=== PATIENT | female | born 1980 | race African-American/Black ===

== ENCOUNTER 2017-11-28 16:23 | Emergency (ER) | payer BC, OTHER ==
[~2017-11-28] VITALS: Ht 170.2 cm; Wt 89.8 kg
[~2017-11-28 16:23] MED LIST: ACETAMINOPHEN-1 EAC1 PO; ACIDOPHILUS LA1 EACH PO; ACIDOPHILUS1 EAC3 PO; ALPRAZOLAM ER0.5 MG PO; AMITRIPTYLINE H25 M2 PO; APIDRA SOL100 UNIT/1; ARTIFICIAL TEA3.5 G2; ATIVAN1 MG PO; AUGMENTIN 875875 MG PO; AVIANE1 EACH PO; AVITA TP; AZATHIOPRINE50 MG PO; BENADRYL ALLERG25 MG PO; BENADRYL25 MG PO; BENTYL 10 MG CA10 M1 PO; BENTYL 20 MG TA20 M1 PO; CALCIUM OYSTER500 MG PO; CARAFATE 1 GM TA1 GM PO; CIPRO500 MG PO; CIPROFLOXACIN500 M1 PO; CIPROFLOXIN HC2.5 M1 OPHTHALMIC; CLEOCIN HCL300 MG PO; CLINDAMYCIN PHO40 GM VG; CLONAZEPAM 0.50.5 M1 PO; CLOTRIMAZOLE 1%15 G1 TOP; COLACE100 MG PO; DIFLUCAN OR; DIFLUCAN100 MG PO; DILAUDID 2 MG TA2 MG; DILAUDID 2 MG TA2 MG PO; DILAUDID2 M1 PO; ERYTHROMYCIN500 MG PO; FLAGYL500 M1 PO; FLONASE 0.05%50 MCG NASAL; HYDROCHLOROTH12.5 M1; HYDROCODONE-AP1 EAC6 PO; HYDROCODONE-APA1 TA1 PO; INVANZ 1GM/NS 101 GM IV; IRON 100-VITAM1 EACH; KEFLEX500 M1 PO; KEFLEX500 MG PO; LEVOTHYROXIN0.112 M1; LEVOTHYROXIN0.125 M1 PO; LEXAPRO 10 MG T10 M2 PO; LIDOCAINE 22 %/30 GM MM; MACROBID 100 M100 M1 PO; MACROBID 100 M100 MG PO; MAG-OX 400 TAB400 M1 PO; MECLIZINE HCL25 M1 PO; MEDROLDOSEPACK PO; MEDROXYPROGESTERONE IM; MELOXICAM7.5 MG PO; MEPRON750 MG/5 M PO; METHIMAZOLE10 MG; MICONAZOLE 745 GM VG; MINOCYCLINE HC100 M2 PO; MIRALAX17 GM PO; MOBIC7.5 MG PO; MOVIPREP POWDE1 EACH PO; NEXIUM20 M1; NOHOMEMEDICATIONS; NORCO 5-325 TA1 EAC1 PO; NORCO 5-325 TA1 EACH PO; NUVIGIL150 MG PO; OMEPRAZOLE20 M1 PO; ONDANSETRON HCL4 M2 PO; OPCICON ONE-ST1.5 MG PO; OXCARBAZEPINE150 MG PO; OXCARBAZEPINE300 MG PO; OXYCODONE HCL 55 MG PO; OXYCONTIN10 M1 PO; PEPCID20 MG PO; PERCOCET PO; PHENERGAN 25 MG25 M1; PHENERGAN 25 MG25 M1 PO; PHENERGAN25 MG RE; POTASSIUM20 PO; PREDNISOLONE 5 M5 M1 PO; PREDNISONE 10 M10 M1 PO; PREDNISONE 20 M20 M1 PO; PREDNISONE 20 M20 MG PO; PREDNISONE50 MG PO; PRENATAL; PROAIR HFA8.5 GM IH; PROAIR HFA8.5 GM INH; PROMETHAZINE HC25 M2 PO; PROTONIX40 M1 PO; PROTONIX40 M2; PROZAC 20 MG20 MG PO; PROZAC20 MG; PROZAC20 MG PO; PROZAC40 MG PO; REMICADE 1100 MG/VIA INJECTION; REMICADE 1100 MG/VIA IV; ROXICODONE5 MG PO; SELENIUM200 MC3 PO; SENOKOT-S1 TA1 OR; SENOKOT-S1 TA1 PO; SEROQUEL 25 MG25 M1 PO; TAPAZOLE10 MG PO; TENORMIN25 MG PO; TESSALON PERLE100 M1 PO; TIROSINT125 MCG PO; TRAMADOL 50 MG50 MG PO; TRANSDERM-SCO1 PATC1 TD; TRILEPTAL300 MG; ULTRAM 50MG TAB50 MG PO; VALIUM5 MG PO; VANCOMYCIN PO; VICODIN; VITAMIN D 5050000 I1; VITAMIN D 5050000 I1 PO; VITAMIN D-32000 UNIT; VITAMIN D32000 UNI1 PO; VITAMIN D400 UNI1 PO; WELLBUTRIN SR150 MG PO; XANAX 0.5 MG0.5 M1; XANAX 0.5 MG0.5 MG; XANAX XR0.5 MG PO; XIFAXAN550 M1 PO; ZANAFLEX4 MG PO; ZOFRAN ODT4 MG PO; ZOFRAN ODT4 MG SUBLING; ZOFRAN4 MG PO; ZOLOFT 50 MG TA50 MG; ZPAK PO; [UNRECOGNIZED DRUG - OTHER]
[2017-11-28 16:59] LABS: URINE BILIRUBIN NEGATIVE (Negative); URINE BLOOD 1+ (Negative); URINE CLARITY CLEAR; URINE COLOR YELLOW; URINE GLUCOSE-RANDOM NEGATIVE (Negative); URINE KETONES NEGATIVE (Negative); URINE LEUKOCYTES-REFLEX NEGATIVE (Negative); URINE NITRITE-REFLEX NEGATIVE (Negative); URINE PROTEIN NEGATIVE (Negative); URINE UROBILINOGEN 0.2 E.U./dl (0.2-1.0)
[2017-11-28 17:10] LABS: BACTERIA-REFLEX None Seen /HPF (None Seen); CASTS None Seen /LPF (None Seen); CRYSTALS None Seen /LPF (None Seen); SQUAMOUS 4-10 Moderate /LPF (0-3); URINE RBC 0-2 Rare /HPF (0-2); URINE WBC-REFLEX None Seen /HPF (0-5)
[2017-11-28 17:19] LABS: ABSOLUTE LYMPHOCYTES 1.7 thou/uL (0.8-5.3); ABSOLUTE MONOCYTES 0.4 thou/uL (0.0-1.2); ABSOLUTE NEUTROPHILS 7.1 thou/uL (1.6-8.1); BASOPHILS 0.3 %; EOSINOPHILS 0.3 %; HEMATOCRIT 38.8 % (37.0-47.0); LYMPHOCYTES 18.1 %; MCH 29.9 pg (26.0-34.0); MCHC 33.6 g/dL (28.0-37.0); MCV 89.1 fL (80.0-100.0); MONOCYTES 4.8 %; MPV 8.6 fl. (7.2-11.1); NUCLEATED RBCS 0 /100WBC; PLATELET COUNT* 279 thou/uL (150-400); POLYS 76.5 %; RBC 4.36 mil/uL (4.20-5.00); RDW-CV 13.6 % (10.5-14.5); WBC 9.3 thou/uL (4.0-11.0)
[2017-11-28 17:26] LABS: CALCIUM 9.5 mg/dL (8.5-10.1); CREATININE 0.7 mg/dL (0.6-1.3); POTASSIUM 3.6 mmol/L (3.5-5.1)
[2017-11-28 17:31] LABS: TOTAL BILIRUBIN 0.2 mg/dL (<0.1-1.0); TOTAL PROTEIN 7.8 g/dL (6.4-8.2)
[2017-11-28] MEDS ORDERED: VENTOLIN HFA 1818 GM INH (17:41)
[2017-11-28] MEDS ORDERED: AZITHROMYCIN 2250 MG PO (17:49)
[2017-11-28] MEDS ORDERED: EAR WAX DROPS15 ML OTIC (17:51)
[2017-11-28] MEDS ORDERED: VITAMIN D2000 UNIT PO (17:51)
[2017-11-28] MEDS ORDERED: VALIUM5 MG PO (17:53)
[2017-11-28] MEDS ORDERED: ENTRESTO 24 MG1 EACH PO (17:54)
[2017-11-28] MEDS ORDERED: LASIX 20 MG TAB20 MG PO (17:56)
[2017-11-28] MEDS ORDERED: ED-SPAZ0.125 MG SUBLING (17:57)
[2017-11-28] MEDS ORDERED: SYNTHROID88 MCG PO (17:58)
[2017-11-28] MEDS ORDERED: LIDOCAINE GEL TOP (18:12)
[2017-11-28] MEDS ORDERED: TOPROL XL25 MG PO (18:13)
[2017-11-28] MEDS ORDERED: PANCRELIPASE PO (18:14)
[2017-11-28] MEDS ORDERED: PREDNISONE 5 MG5 M1 (18:15)
[2017-11-28] MEDS ORDERED: ZANTAC 150MG T150 MG PO (18:16)
[2017-11-28] MEDS ORDERED: SPIRONOLACTONE25 M1 PO (18:17)
[2017-11-28] MEDS ORDERED: ZOLOFT50 MG PO (18:17)
[2017-11-28] MEDS ORDERED: TRAZODONE HCL50 MG PO (18:18)
[2017-11-28] MEDS ORDERED: TRANSDERM-SCOP1 EACH TOP (18:18)
[2017-11-28] MEDS ORDERED: SONATA5 M1 PO (18:20)
[2017-11-28] MEDS ORDERED: BENTYL 20 MG TA20 M1 PO (19:59)
[2017-11-28] MEDS ORDERED: NORCO 5-325 TA1 EAC1 PO (19:59)
[2017-11-28] MEDS ORDERED: PREDNISONE50 MG PO (20:00)
[2017-11-28 20:16] VITALS: BP 119/85
== END 2017-11-28 20:17 | disposition home or self-care (01) ==
LOC: M.ERS 16:23
PROVIDERS: Nurse Practitioner Family
DX: K50.90 Crohn's disease, unspecified, without complications (principal); E03.9 Hypothyroidism, unspecified; Z88.1 Allergy status to other antibiotic agents; Z88.8 Allergy status to other drugs, medicaments and biological substances

== ENCOUNTER 2018-09-18 19:44 | Emergency (ER) | payer BC ==
[~2018-09-18] VITALS: Ht 170.2 cm; Wt 106.6 kg
[~2018-09-18 19:44] MED LIST changes: +ABILIFY 2 MG2 M1 PO; +AZITHROMYCIN 2250 MG PO; +DEMADEX20 MG PO; +EAR WAX DROPS15 ML OTIC; +ED-SPAZ0.125 MG SUBLING; +ENTRESTO 24 MG1 EACH PO; +ERYTHROMYCIN E3.5 G2; +LASIX 20 MG TAB20 MG PO; +LIDOCAINE GEL TOP; +METFORMIN HCL500 MG PO; +MIRENA1 EACH; +NEURONTIN 300M300 M2 PO; +PANCRELIPASE PO; +PREDNISONE 5 MG5 M1; +SONATA5 M1 PO; +SPIRONOLACTONE25 M1 PO; +SYNTHROID88 MCG PO; +TESSALON PERLE100 MG PO; +TOPROL XL25 MG PO; +TRANSDERM-SCOP1 EACH TOP; +TRAZODONE HCL50 MG PO; +VENTOLIN HFA 1818 GM INH; +VITAMIN D2000 UNIT PO; +ZANTAC 150MG T150 MG PO; +ZOLOFT50 MG PO
[2018-09-18] MEDS ORDERED: FLEXERIL PO (21:32)
[2018-09-18] MEDS ORDERED: NORCO 5-325 TA1 EAC1 PO (21:33)
[2018-09-18 21:44] VITALS: BP 122/68
== END 2018-09-18 21:44 | disposition home or self-care (01) ==
LOC: M.ERS 19:44
DX: S09.8XXA Other specified injuries of head, initial encounter (principal); E03.9 Hypothyroidism, unspecified; I50.9 Heart failure, unspecified; Z88.1 Allergy status to other antibiotic agents; Z88.2 Allergy status to sulfonamides; Z88.5 Allergy status to narcotic agent; Z88.8 Allergy status to other drugs, medicaments and biological substances; W18.2XXA Fall in (into) shower or empty bathtub, initial encounter; Y93.89 Activity, other specified; Y92.89 Other specified places as the place of occurrence of the external cause; Y99.8 Other external cause status

== ENCOUNTER 2020-01-28 18:29 | Emergency (ER) | payer BC ==
[~2020-01-28] VITALS: Ht 170.2 cm; Wt 81.7 kg
[~2020-01-28 18:29] MED LIST changes: +FLEXERIL PO
[2020-01-28] MEDS ORDERED: NASCOBAL1 EACH NASAL (18:50)
[2020-01-28] MEDS ORDERED: CARVEDILOL12.5 MG PO (18:50)
[2020-01-28] MEDS ORDERED: NITROSTAT0.3 MG SUBLING (18:51)
[2020-01-28 19:07] LABS: URINE BILIRUBIN NEGATIVE (Negative); URINE BLOOD NEGATIVE (Negative); URINE CLARITY CLEAR; URINE COLOR YELLOW; URINE GLUCOSE-RANDOM NEGATIVE (Negative); URINE KETONES NEGATIVE (Negative); URINE LEUKOCYTES-REFLEX NEGATIVE (Negative); URINE NITRITE-REFLEX NEGATIVE (Negative); URINE PROTEIN NEGATIVE (Negative); URINE SPECIFIC GRAVITY 1.025 (1.005-1.030); URINE UROBILINOGEN 0.2 E.U./dl (0.2-1.0)
[2020-01-28 19:39] LABS: ABSOLUTE EOSINOPHILS 0.2 thou/uL (0.0-0.7); ABSOLUTE LYMPHOCYTES 2.4 thou/uL (0.8-5.3); ABSOLUTE MONOCYTES 0.4 thou/uL (0.0-1.2); ABSOLUTE NEUTROPHILS 4.1 thou/uL (1.6-8.1); BASOPHILS 0.1 %; EOSINOPHILS 3.1 %; HEMATOCRIT 36.9 % (37.0-47.0); LYMPHOCYTES 33.2 %; MCH 31.5 pg (26.0-34.0); MCHC 35.1 g/dL (28.0-37.0); MCV 89.5 fL (80.0-100.0); MONOCYTES 5.7 %; MPV 9.9 fl. (7.2-11.1); NUCLEATED RBCS 0 /100WBC; PLATELET COUNT* 230 thou/uL (150-400); POLYS 57.9 %; RBC 4.12 mil/uL (4.20-5.00); RDW-CV 13.5 % (10.5-14.5); WBC 7.1 thou/uL (4.0-11.0)
[2020-01-28 19:53] LABS: CALCIUM 8.8 mg/dL (8.5-10.1); CREATININE 0.8 mg/dL (0.6-1.3); POTASSIUM 3.2 mmol/L (3.5-5.1)
[2020-01-28 19:58] LABS: ALBUMIN 3.9 g/dL (3.4-5.0); TOTAL BILIRUBIN 0.3 mg/dL (<0.1-1.0); TOTAL PROTEIN 7.1 g/dL (6.4-8.2)
[2020-01-28] MEDS ORDERED: BENTYL 20 MG TA20 M1 PO (21:29)
[2020-01-28 21:47] VITALS: BP 117/72
--- NOTE | 2020-01-29 10:31 | EKG ---
[place] [address] ELECTROCARDIOGRAM REPORT Name: STEPHIE WILLIAMKINAH Roselyn Room: [facility]#: [id number] Admission: 01/28/20 Attend Phys: Discharge: 01/28/20 Date of : 80 Date of Service: 01/28/201943 Report #: [id number] THIS REPORT FOR: //name// [facility] ED Test Date: 2020-01-28 Test Time: 19:44:52 Pat Name: BA WILLIAM Department: Room: Gender: Certified Procedural Coder: [place] : 1980 Requested By: Peace Lemus Order Number: [id number] MD: Carlos Tucker Measurements Intervals [place] Rate: 50 P: 55 WI: 126 QRS: 34 QRSD: 95 T: -25 QT: 487 QTc: 445 Interpretive Statements Sinus rhythm Low voltage, precordial leads Compared to ECG 09/17/2018 13:29:51 Low QRS voltage now present T-wave abnormality persists Electronically Signed On 01-29-2020 10:31:14 CDT by Carlos Tucker [email or web address] <ELECTRONICALLY SIGNED> By: Carlos Tucker MD, [facility] 01/29/20 1031 43 43 Carlos Tucker MD, [facility] /EPI
== END 2020-01-28 21:48 | disposition home or self-care (01) ==
LOC: M.ERS 18:29
PROVIDERS: Personal Emergency Response Attendant; Physician Assistant
DX: K59.00 Constipation, unspecified (principal); R10.13 Epigastric pain; R10.12 Left upper quadrant pain; E03.9 Hypothyroidism, unspecified; Z88.1 Allergy status to other antibiotic agents; Z88.3 Allergy status to other anti-infective agents; Z88.5 Allergy status to narcotic agent; Z79.899 Other long term (current) drug therapy

== ENCOUNTER 2021-04-11 15:54 | Emergency (ER) | payer BC ==
[~2021-04-11] VITALS: Ht 170.2 cm; Wt 59.0 kg
[~2021-04-11 15:54] MED LIST changes: +CARVEDILOL12.5 MG PO; +NASCOBAL1 EACH NASAL; +NITROSTAT0.3 MG SUBLING
[2021-04-11 17:29] LABS: URINE BILIRUBIN NEGATIVE (Negative); URINE BLOOD NEGATIVE (Negative); URINE CLARITY CLEAR; URINE COLOR YELLOW; URINE GLUCOSE-RANDOM NEGATIVE (Negative); URINE KETONES NEGATIVE (Negative); URINE LEUKOCYTES NEGATIVE (Negative); URINE NITRITE NEGATIVE (Negative); URINE PROTEIN NEGATIVE (Negative); URINE UROBILINOGEN 0.2 E.U./dl (0.2-1.0)
[2021-04-11 17:32] LABS: ABSOLUTE EOSINOPHILS 0.2 thou/uL (0.0-0.7); ABSOLUTE LYMPHOCYTES 2.2 thou/uL (0.8-5.3); ABSOLUTE MONOCYTES 0.2 thou/uL (0.0-1.2); ABSOLUTE NEUTROPHILS 2.6 thou/uL (1.6-8.1); BASOPHILS 0.8 %; EOSINOPHILS 3.5 %; HEMATOCRIT 40.7 % (37.0-47.0); LYMPHOCYTES 41.2 %; MCHC 34.5 g/dL (28.0-37.0); MCV 89.9 fL (80.0-100.0); MONOCYTES 4.6 %; MPV 9.3 fl. (7.2-11.1); NUCLEATED RBCS 0 /100WBC; PLATELET COUNT* 221 thou/uL (150-400); POLYS 49.9 %; RBC 4.53 mil/uL (4.20-5.00); RDW-CV 12.8 % (10.5-14.5); WBC 5.2 thou/uL (4.0-11.0)
[2021-04-11 17:37] LABS: CALCIUM 9.6 mg/dL (8.5-10.1); CREATININE 1.1 mg/dL (0.6-1.3); POTASSIUM 3.9 mmol/L (3.5-5.1)
[2021-04-11 17:41] LABS: ALBUMIN 4.6 g/dL (3.4-5.0); TOTAL BILIRUBIN 0.2 mg/dL (<0.1-1.0); TOTAL PROTEIN 8.1 g/dL (6.4-8.2)
[2021-04-11 19:38] VITALS: BP 134/90
== END 2021-04-11 19:38 | disposition home or self-care (01) ==
LOC: M.ERS 15:54
PROVIDERS: Physician Assistant
DX: R10.11 Right upper quadrant pain (principal); R10.12 Left upper quadrant pain; E03.9 Hypothyroidism, unspecified; I50.9 Heart failure, unspecified; Z79.899 Other long term (current) drug therapy; Z90.49 Acquired absence of other specified parts of digestive tract; Z88.2 Allergy status to sulfonamides; Z88.0 Allergy status to penicillin; Z88.1 Allergy status to other antibiotic agents